=== PATIENT | male | born 1975 | race Caucasian/White ===

== ENCOUNTER 2017-07-05 14:09 | Observation (INO) | payer OTHER ==
[2017-07-05] VITALS (14 sets, daily range): BP systolic 146–177; BP diastolic 93–106; PULSE 73–106; RESP 11–20; O2SAT 92–100
[~2017-07-05] VITALS: Ht 188 cm; Wt 107.0 kg
[2017-07-05] MEDS ORDERED: HYDROmorphone 1 mg/mL Inj ONE (14:53)
--- NOTE | 2017-07-05 15:08 | ED.REPORT ---
HPI-Extremity Problem Upper Date of Service Jul 05, 2017 ED Provider: Cristi Brown MD Pt is a 41 year old male who presents to the ED from [facility] with a left arm fracture s/p falling on his arm onset earlier this afternoon. He received a splint from , but came to the ED with the need for a reduction. He states that his pain radiates up his left arm, but didn't break through his skin. Pt denies loss of consciousness during the fall or numbness/ tingling. Nursing Notes Stated Complaint: LEFT ARM INJURY Chief Complaint: Extremity Trauma Nursing Notes Reviewed: Yes Allergies: Coded Allergies: No Known Allergies (Unverified , 07/05/17) Scheduled PRN oxyCODONE-Acetaminophen 5-325 mg (oxyCODONE-Acetaminophen 5-325 mg) 1 Each Tablet 1-2 TAB PO Q6H PRN PRN For Pain General Time Seen by MD: 15:07 Chief Complaint Arm injury left Hx Obtained From: Patient Arrived By: Walk-in Onset Occurred: 1 - 4 hours ago Symptom Duration: Constant Caused by: Fall on ground Location: : Arm left Quality: Painful Severity: Current: Moderate Severity: Maximum: Moderate Recent Healthcare: Recent doctor visit Similar Sx Previous: No Past Medical History Past Medical History Denies Past Surgical History knee hands face Family History Reports: Diabetes mellitus Smoking History Former Smoker Social History drinks coffee regularly, no other forms of caffeine Alcohol Use: "Social" Drug Use: Denies drug use Other Social History: Good social support Ambulatory Status Independent Review of Systems Musculoskeletal: Reports: Extremity pain (Left arm fracture) Neurologic: Denies: Change LOC, Numbness Complete sys rev & neg: except as marked. Physical Exam Initial Vital Signs Vital Signs (First) Date Time Temp Pulse Resp B/P Pulse Ox O2 Delivery O2 Flow Rate FiO2 07/05/17 14:11 37.1 80 16 147/102 100 Initial VS: Reviewed Head / Eyes: Atraumatic, Normocephalic Neck: Supple, Full range of motion Respiratory: No respiratory distress Skin: Warm, Dry, No cyanosis Neurologic: Alert, Oriented, Nonfocal Psychiatric: Mood/affect normal, Behavior normal, Normal thought content General/Constitutional: Awake, Alert Upper Extremity / MS: Neurologic intact, Vascular intact Wrist / Hand: Neurologic intact, Vascular intact Posterior deformity of left distal wrist Pinpoint puncture wound over volar aspect of radial head, presumptive of open fracture ENT: Atraumatic, Airway patent, Mucous membranes moist Interpretation & Diagnostics X-Ray Interpretation Xray Interpretation: IMPRESSION: Comminuted, mildly impacted distal radial fracture. Mildly displaced ulna styloid fracture is present. Dictated by: Arline Capellan M.D. on 07/05/2017 at 16:59 Approved by: Arline Capellan M.D. on 07/05/2017 at 17:00 X-Ray Ordered: Wrist left Interpretation / Wet Read by: Interpret - Radiologist Procedures Reduction of Left Distal Wrist Open Fracture: Pre-Procedure: Time - 1632 Performed by ED Physician Informed consent provided. Consent from patient. Time-out performed, hand hygiene observed, oxygen administered, pulse oximeter applied, property assessment monitor applied. Sedation: Propofol Procedure: Neurovascular: Intact pre-procedure, intact post-procedure. Post Procedure: Adequately reduced per examination. Procedure successful. Condition improved, tolerated procedure, well, and patient stable. Proced Mod Sedation/Analgesia ED Physician left room at 1637. Respiratory therapy still in room with patient. Time: 16:31 Procedure Performed by: ED physician Sedation Time: Enter # minutes (6 minutes) Consent / Setup: Informed consent provided, Consent from patient, Time-out performed, Hand hygiene observed Indication: Fracture reduction Preparation: radiation monitor applied, Pulse oximeter applied, Constant attendance, IV access established, Eval last meal time, Supplemental oxygen, Procedure explained, Suction available, End tidal CO2 mon applied VS Prior to Procedure: All vital signs normal Mallampati: Class & Anatomy: 1 tonsils/uvula/s palate Airway Exam: Normal facial anatomy CVS/Resp Exam: Normal breath sounds Neuro Exam: Alert, Responsive Sedation: Sedation: Propofol ASA Classification: 1 normal healthy patient Response During Procedure: Handled secretions adeq, Maintained airway well, Oxygenation stable, Sedation appropriate, Vital signs stable Complications During/After: None Reversal: None required Mental Status After Procedure: Alert, Oriented X3 Post-Procedure: Alert prior to discharge, Ambulatory with assist, Pt rtn pre- proc baseline, Vital signs normal Attestation: I performed procedure, I performed sedation Re-Eval/Medical Decision Source of Hx: Old records Re-Evaluation/Progress : Time of Eval: 16:20 Re-Evaluation/Progress Note: Pt rechecked. Performed reduction and sedation procedures. Discussed plan for admission. Pt understands and agrees with plan. All questions addressed. Consultation #1: Referral / Consult Name: Ayush Pabon Consulted With: Orthopedic Call Returned at: 16:54 Director Market Intelligence: Agrees with eval, Agrees with plan Note: Discussed pt's case with orthopedic surgeon, Dr. Pabon. He will look at the pt's x-ray. Consultation #2: Referral / Consult Name: PepperAyush Metcalf DO Consulted With: Orthopedic Call Returned at: 17:05 Director Market Intelligence: Will see patient, Agrees with plan, Accepts admit Note: Discussed pt's case with orthopedic surgeon, Dr. Pabon. He states that pt will go to surgery today, and accepts admission. Consultation #3: Referral / Consult Name: AlondraAyush salgado DO Consulted With: Orthopedic Call Returned at: 18:12 Note: [facility] 60 percocet for patient to be filled for after procedure. Counseled Regarding: Diagnosis, Lab results, Need for admission Discharge & Departure Impression: Primary Impression: Open fracture of left wrist Encounter type: initial encounter Qualified Code: S62.102B - Fracture of unspecified carpal bone, left wrist, initial encounter for open fracture Disposition: ADMITTED TO HOSPITAL Discharge Condition All VS Reviewed: Yes Condition: Stable Referrals: Jaime Steinberg DO (PCP) Scribe Attestation Portions of this note were transcribed by Janie Austin. I, Dr. Brown, personally performed the history, physical exam and medical decision-making; I reviewed and confirmed the accuracy of the information in the transcribed note. copies to: Jaime Steinberg Kirk H MD Jul 05, 2017 15:08 Janie Austin Jul 05, 2017 15:14
[2017-07-05] MEDS ORDERED: Propofol 10 mg/mL 20 mL Inj ONE (15:29)
[2017-07-05] MEDS ORDERED: Ondansetron 2 mg/mL 2 mL Inj IVPUSH PRN ×2 (15:50→17:35)
[2017-07-05] MEDS: HYDROmorphone 1 mg/mL Inj IVPUSH PRN ×2 (16:05→17:09)
[2017-07-05] MEDS ORDERED: TdaP Vaccine 0.5 mL Inj IM ONE (16:40)
[2017-07-05] MEDS ORDERED: CeFAZolin Inj 1 GM in IV Premix 1 EACH IV ONE (16:40)
[2017-07-05] MEDS ORDERED: Propofol 10,000 mCg/mL 20 mL Inj IV ONE (16:45)
--- NOTE | 2017-07-05 17:02 | DRSVH ---
PROCEDURE: X-RAY LEFT WRIST, TWO VIEWS ([id number]) INDICATIONS: C-ARM ASSISTED CLOSED REDUCTION TECHNIQUE:2 views of the wrist were acquired. COMPARISON: None. FINDINGS: Bones: There is a comminuted, mildly impacted distal radial fracture without definitive intra-articul ar extension. A mildly displaced ulna styloid fracture is present. Scaphoid view: Not obtained. Soft tissues: No suspicious soft tissue calcifications. IMPRESSION: Comminuted, mildly impacted distal radial fracture. Mildly displaced ulna styloid fractur e is present. Dictated by: Arline Capellan M.D. on 07/05/2017 at 16:59 Approved by: Arline Capellan M.D. on 07/05/2017 at 17:00
[2017-07-05] MEDS ORDERED: Labetalol 5 mg/mL 20 mL Inj IV PRN (17:35)
[2017-07-05] MEDS ORDERED: hydrALAZINE 20 mg/mL Inj IVPUSH PRN (17:35)
[2017-07-05] MEDS ORDERED: Phenylephrine 10,000 mCg/mL Inj IVPUSH PRN (17:35)
[2017-07-05] MEDS ORDERED: HYDROmorphone 1 mg/mL Inj IVPUSH PRN (17:35)
[2017-07-05] MEDS ORDERED: Lactated Ringer's 500 ML IV PRN (17:35)
[2017-07-05] MEDS ORDERED: Dexamethasone 4 mg/mL Inj IVPUSH PRN (17:35)
[2017-07-05] MEDS ORDERED: MetoCLOpramide 5 mg/mL 2 mL Inj IVPUSH PRN (17:35)
[2017-07-05] MEDS ORDERED: EPHEDrine Sulfate 50 mg/mL Inj IVPUSH PRN (17:35)
[2017-07-05] MEDS ORDERED: Lactated Ringer's 1,000 ML IV SCH (17:35)
[2017-07-05] MEDS ORDERED: Atropine 0.4 mg/mL Inj IVPUSH PRN (17:35)
[2017-07-05] MEDS ORDERED: fentaNYL-PF 50 mCg/mL 2 mL Inj IVPUSH PRN (17:35)
--- NOTE | 2017-07-05 17:35 | PCM.HPANE ---
Patient Data Date of Service: Jul 05, 2017 Surgeon Admitting Provider: Attending Provider: Primary Care Physician:Idris De La Torre MD Other Provider: Reason for Visit Left Arm Injury Ht/WT & BMI Height (Feet): 6 Height (Inches): 2 Weight (Kilograms): 106.82 Body Mass Index Allergies Coded Allergies: No Known Allergies (Unverified , 07/05/17) Past Anesthesia History Anesthesia History: Denies:: Abnormal Airway, Anesthesia Reactions Diabetes History Hx Diabetes?: No MRSA MRSA: No Medications Hypertension Medication: No Home Meds Incl Beta Lisbet: No History History of ENT Problems?: No HEENT History: Denies:: Abnormal Airway Difficult Intubation Denture Type: None Teeth Condition: Within Normal Limits Hx of Heart Problems?: Yes (Hx SVT) Cardiovascular History: Denies:: Congestive Heart Failure Hypertension Hx of Respiratory Problem?: No Respiratory History: Denies:: Asthma COPD Tuberculosis Hx Neurologic Problems?: No Neurological History: Denies:: CVA Dizziness Headaches Hx of GI Problems?: No Hx of Problems?: No HX of Peritoneal Dialysis: No Hx Musculoskeletal Problems?: Yes (Left wrist fracture) Hx of Psycho/Social Problems?: No Hx Surgeries?: Yes (knee, hands, face) Hx Any Other Health Problems?: No Hx Diabetes: No Hx Alcohol Use: YesHx Substance Use: No Smoking Status: Former Smoker (currently vapes) Have You Smoked inLast 12 mo: No Stop/Bang Treated for Sleep Apnea?: No Do You Have a CPAP Machine?: No DOT Risk Assessment: Low Risk, <3 Yes Risk Assessment Category Category 1A: Patient has history of documented sleep apnea, and HAS NOT received any narcotic, sedative or anesthesia administration during this stay. Category 1B: Patient has history of documented sleep apnea, and HAS received any narcotic , sedative or anesthesia administration during this stay Category 2: Patient has SUSPECTED Obstructive Sleep Apnea, and HAS received any narcotic , sedative or anesthesia administration during this stay. Category 3: Patient has SUSPECTED Obstructive Sleep Apnea and HAS NOT received narcotic, sedative or anesthesia administration during this stay. Category 4: Outpatient in Procedural Areas with known sleep apnea or who screen positive for High Risk via the STOP/BANG questionnaire. Exam Exam Vital Signs Vital Signs Date Time Temp Pulse Resp B/P Pulse Ox O2 Delivery O2 Flow Rate FiO2 07/05/17 14:11 37.1 80 16 147/102 100 General Appearance: Alert, Oriented X3, Cooperative HEENT/AIRWAY: MP 2, Neck Movement (Full, haney), Mouth Opening Lungs: Clear to Auscultation, Normal Air Movement Heart: Regular Rate/Rhythm, Normal S1, Normal S2 Meds/Labs/Diagnostics Admission Meds Current Medications Hydromorphone HCl (Dilaudid Inj) 1 mg STK-MED ONCE .ROUTE Last administered on 07/05/17 14:59; Start 07/05/17 at 14:53; Stop 07/05/17 at 14:55; Status DC Propofol 200 mg 200 mg STK-MED ONCE .ROUTE Last administered on 07/05/17 16:25 ; Start 07/05/17 at 15:29; Stop 07/05/17 at 15:30; Status DC Cefazolin Sodium/ Dextrose/Premix (Ancef Inj/IV Premix) 50 ml @ 100 mls/hr ONCE ONCE IV Last administered on 07/05/17 17:09; Start 07/05/17 at 16:40; Stop 07/05/17 at 17:09; Status DC Plan Impression Patient chart reviewed, patient interviewed and anesthestic plan with risks, benefits, and alternatives discussed, and informed consent obtained. NPO per Anesth. Guidelines: Yes ASA Physical Status: ASA2 Plus Emergency Anesthetic Plan: GA Bene/Risks/Altern/Consents: Yes HP Complete Prior to Induction: Yes Justice Painter MD Jul 05, 2017 17:35
[2017-07-05] MEDS ORDERED: OXYC1TAB24 PO (18:12)
--- NOTE | 2017-07-05 18:37 | HP ---
[address] [address] HISTORY AND PHYSICAL PATIENT: NOÉ BONDS : 1975 MR#: [id number] ADMIT: 07/05/2017 JOB ID: [id number] DATE: 07/05/2017 CHIEF COMPLAINT: Left wrist injury. HISTORY OF PRESENT ILLNESS: The patient is a 41-year-old male who was in a shooting competition and slipped and fell. His gun was in the right hand and therefore he fell onto his left outstretched hand and sustained a displaced fracture of the left distal radius and ulna. He was brought to the emergency department. He is left-hand dominant. He had onset of severe acute pain in the left wrist. PAST MEDICAL HISTORY: Significant for SVT which is treated with bearing down and does not require any medications. PAST SURGICAL HISTORY: Includes ACL reconstruction on the right knee, facial surgeries after dog bite, and a left wrist cyst removal. ALLERGIES: No known drug allergies. PHYSICAL EXAMINATION: Blood pressure 145/109, pulse rate 98, respirations 18, O2 sat 98%. He is alert and oriented x3. No acute distress. Left wrist is splinted. He is able to move his fingers. He has some slightly diminished sensation in the thumb, index and middle finger. His capillary refill is less than 3 seconds. Per the emergency physician and patient report, there is a small wound over the radial volar wrist with bleeding coming from it adjacent his previous surgical scar from cyst removal. He denies any other injuries. No pain with range of motion of the shoulder or right upper extremity. No pain with range of motion of bilateral lower extremities. X-rays demonstrate left comminuted distal radius and ulnar fractures. ASSESSMENT: Left comminuted grade 1 open distal radius fracture. PLAN: We discussed treatment options, and the patient would like to proceed with operative treatment now and we discussed the risks, benefits, and possible complications of surgery including, but not limited to, injury to nerves and vessels, infection, bleeding, incomplete relief of symptoms, stiffness, need for additional procedures, hardware irritation. The patient had a good understanding and all questions were answered. He wished to proceed. He would prefer to avoid casting if at all possible. Dr. Brown, emergency physician, prescribed Percocet #60 for postoperative pain as the patient would like to go home this evening if at all possible.
[2017-07-05] MEDS ORDERED: Ropivacaine-PF 0.5% 30 mL Inj INFILTRATE ONE (19:21)
--- NOTE | 2017-07-05 20:57 | PCM.ANEP1 ---
Post Anesthesia PACU Phase 1 Assessment Date of Service: Jul 05, 2017 Vital Signs Vital Signs Date Time Temp Pulse Resp B/P Pulse Ox O2 Delivery O2 Flow Rate FiO2 07/05/17 20:50 104 12 177/106 92 Nasal Cannula 2 07/05/17 20:48 37.0 101 11 153/104 100 Simple Mask 9 07/05/17 18:45 37.1 81 17 153/103 95 Room Air 07/05/17 18:08 81 17 153/103 95 Room Air 07/05/17 14:11 37.1 80 16 147/102 100 Anesthetic Administered: GA Level of Alertness: Sleepy, easy to arouse ALEXANDRA's with Equal Strength: Yes Pain: No Nausea or Vomiting: No CV Function & Hydration Stable: Yes Airway Device: Oxygen Delivery: Nasal Cannula Lungs: Normal Air Movement PACU Phase 2 Assessment Complications: No Follow up Care: N/A Patient Instructions Provided: N/A Comments Concern intraop for brief SVT episodes for which patient was stable throughout. Upon closer monitoring it appeared the EKG changes were associated with surgical field movement, and although the EKG rate raji to approximately 150, the pulse oximetry rate persisted in the 60s. After surgical completion patient showed no signs of arrhythmia. Will continue to monitor in PACU and place on telemetry when transferred to floor prior to discharge to ensure no arrhythmias. Patient does have a known diagnosis of SVT. Justice Painter MD Jul 05, 2017 20:57
[2017-07-05] MEDS ORDERED: hydrOXYzine Pamoate 25 mg Capsule PO PRN (21:00)
--- NOTE | 2017-07-05 21:12 | OP ---
[address] [address] OPERATIVE REPORT PATIENT: NOÉ BONDS : 1975 MR#: [id number] ADMIT: 07/05/2017 JOB ID: [id number] DATE OF SURGERY: 07/05/2017 PREOPERATIVE DIAGNOSIS(ES): Left grade 1 open distal radius fracture. POSTOPERATIVE DIAGNOSIS(ES): Left grade 1 open distal radius fracture. PROCEDURE: Left wrist open reduction and internal fixation. SURGEON: Ayush Pabon DO. ANESTHESIA: General. INDICATIONS: The patient is a 41-year-old male who fell on his outstretched hand sustaining a left comminuted displaced distal radius fracture with a small grade 1 open puncture wound on the volar aspect of the wrist. We discussed treatment options for this, and he wished to proceed with open reduction and internal fixation. We discussed the risks, benefits, and possible complications of surgery. All questions were answered and he wished to proceed. PROCEDURE IN DETAIL: The patient was brought to the operating room. He was given a preoperative antibiotic and general anesthetic. The left upper extremity was sterilely prepped and draped. A tourniquet was used for hemostasis. An incision was made over the FCR tendon incorporating his previous volar scar. Dissection was carefully carried through the subcutaneous tissue and the fascia overlying the FCR tendon was incised. The interval between the FCR and the radial artery was identified, and dissection was carefully carried down onto the pronator into Parona's space. The pronator was released off of the radial aspect of the radius and the fracture was then identified. The pronator was released off of the volar radius. The fracture was irrigated and then reduced by direct visualization and held with a 0.062 K-wire. Next, a Synthes volar distal radius plate was applied to the volar radius, secured initially with K-wires to confirm plate placement and then secured with 2.7 cortex screw in the oblong hole. This was adjusted to reach the appropriate level distally and then a 2.4 nonlocking screw was placed distally in order to suck the plate down to the bone. Additional locking screws were placed distally and fluoroscopy was used to confirm placement. Using the variable angle locking screws care was taken to ensure that the screws were not prominent on the dorsal aspect of the wrist and two additional 2.7 proximal shaft screws were added and tightened down yielding excellent fixation of the fracture with anatomic reduction. The wound was further irrigated and the pronator was repaired. The tourniquet was then let down. Electrocautery was used for hemostasis. The subcu was closed with 3-0 Vicryl and the skin was closed with running subcuticular 4-0 Monocryl with Steri-Strips. Naropin was added as an adjunct local anesthetic. Sterile dressings and a volar splint were applied. The patient tolerated the procedure well. Blood loss was minimal. POSTOPERATIVE PROTOCOL: Have the patient maintain his splint for two weeks and then follow up in the clinic for recheck with transition over to an Exos cast as the patient cannot tolerate cast. Continue the Exos cast for likely period of 3-4 weeks and then follow up with myself with x-rays. The emergency department physician prescribed 60 Percocet for postop pain.
[2017-07-05] MEDS: oxyCODONE-Acetamin 5-325 mg Tablet PO PRN (22:11)
[2017-07-06 00:45] VITALS: BP 145/92; PULSE 85; RESP 18; O2SAT 97
[2017-07-06] MEDS: CeFAZolin Inj 2 GM in IV Premix 1 EACH IV SCH ×2 (00:58→09:29)
[2017-07-06] MEDS: oxyCODONE-Acetamin 5-325 mg Tablet PO PRN ×3 (02:08→10:28)
[2017-07-06 05:11] VITALS: BP 143/91; PULSE 101; RESP 20; O2SAT 94
--- NOTE | 2017-07-06 09:17 | PCM.PNORTH ---
Subjective Date of Service: Jul 06, 2017 Visit Information: Reason for Visit Left Luca Open Fracture Surgery/Surgery Date Post-Op Day # 1 Date of Admission: Jul 05, 2017 at 17:45 Hospital Day # Subjective Patient states his pain is well controlled with his Percocet. He states he has been icing and elevating with a pillow under his arm. He states he had transient numbness in his thumb but it has resolved now. He complains of tightness in his forearm from time to time but states it resolves when he elevates his arm. Postop General: No Complaints, No Shortness of Breath, No Chest Pain Pain Management: PO Objective Exam Objective Patient laying in bed Vital Signs and I/O Vital Sign - Last Date Time Temp Pulse Resp B/P Pulse Ox O2 Delivery O2 Flow Rate FiO2 07/06/17 05:11 36.9 101 20 143/91 94 Room Air 07/06/17 00:45 2.50 Intake and Output 07/05/17 07/05/17 07/06/17 Cumulative From/Thru 15:00 23:00 07:00 07/05/17 14:11 - 07/06/17 05:13 Intake Total 1900 ml 476 ml 2376 ml Output Total 550 ml 550 ml Balance 1900 ml -74 ml 1826 ml Intake Oral 400 ml 400 ml IV Total 1900 ml 76 ml 1976 ml Output Urine Total 550 ml 550 ml # Bowel Movements 0 0 General Appearance: Alert, Oriented X3, Cooperative, No Acute Distress Extremities: Warm Postop Sensory Motor: Distal Motor Intact, Movement in Fingers SURGICAL WOUND : Wound Location/Description Splint c/d/i. Able to extend and abd/adduct fingers. Able to make a fist. Capillary refill is brisk. Assessment & Plan Impression Postoperative day #1 left open distal radius ORIF Problems: Plan Weightbearing: Nonweightbearing with the left upper extremity. Dressings/Immobilization: Keep splint clean dry and intact. Do not remove. Do not get wet. Ice and elevate frequently to reduce swelling. Place ice at the crook of the elbow. Showering: Keep splint dry. Cover with bag and/or plastic wrap. Do not get it wet. Analgesia: Patient given #60 Percocet in the ED. Please take these as directed. May supplement with ibuprofen or another NSAID. Discharge plan: Discharge home today. Follow-up plan: In 2 weeks at [facility] with a PA for wound check, xrays and transition to an Exos or cast. Follow up at 6 weeks post-op with Dr. Pabon with xrays. Tori Boyce PA-C Jul 06, 2017 09:17
--- NOTE | 2017-07-06 09:20 | PCM.DIOPOR ---
OP Ortho Discharge Instruction Dates of Hospitalization Date of Discharge: Jul 06, 2017 Providers Admitting Physician: Ayush Pabon DO Primary Care Physician: Idris De La Torre MD Attending Physician: Aysuh Pabon DO Diagnosis at Time of Discharge Post operative diagnosis Status post left open distal radius ORIF Activity Activity-General: Elevate & ice extremity Left Upper Extremity: Non-weight bearing Dressing and Incisional Care Dressing Care: Keep dressing clean, dry & intact Additional Instructions Discharge Instructions Weightbearing: Nonweightbearing with the left upper extremity. Dressings/Immobilization: Keep splint clean dry and intact. Do not remove. Do not get wet. Ice and elevate frequently to reduce swelling. Place ice at the crook of the elbow. Showering: Keep splint dry. Cover with bag and/or plastic wrap. Do not get it wet. Analgesia: Patient given #60 Percocet in the ED. Please take these as directed. May supplement with ibuprofen or another NSAID. Discharge plan: Discharge home today. Follow-up plan: In [address] [facility] with a PA for wound check, xrays and transition to an Exos or cast. Follow up at 6 weeks post-op with Dr. Pabon with xrays. Tori Boyce PA-C Jul 06, 2017 09:19
[2017-07-06 09:25] VITALS: BP 154/106; PULSE 84; RESP 18; O2SAT 95
[2017-07-06 10:02] VITALS: PULSE 96
[2017-07-06] MEDS ORDERED: Succinylcholine Chloride 20 mg/mL 5 mL Inj ONE (12:07)
[2017-07-06] MEDS ORDERED: Phenylephrine/NS 100 mCg/mL 10 mL Syringe IVPUSH ONE (12:07)
[2017-07-06] MEDS ORDERED: Ondansetron 2 mg/mL 2 mL Inj ONE (12:07)
[2017-07-06] MEDS ORDERED: Propofol 10,000 mCg/mL 20 mL Inj ONE (12:07)
[2017-07-06] MEDS ORDERED: fentaNYL-PF 50 mCg/mL 2 mL Inj ONE (12:07)
--- NOTE | 2017-07-07 10:39 | PCM.DC.ORT ---
Discharge Summary Date of Service: Jul 07, 2017 Date of Hospital Admission: Jul 05, 2017 at 17:45 Date of Discharge: Jul 07, 2017 Reason for Hospitalization: Left open distal radius fracture Procedures Performed: Left distal radius fracture ORIF Hospital Course: The patient was admitted to the hospital on 07/05/2017 and underwent the above procedure. Antibiotic prophylaxis consisting of Ancef and vancomycin. The surgeon was Dr. Pabon. Patient tolerated the procedure well and was transferred to recovery room in stable condition. Patient had physical therapy to work on ambulation and transfers. Weightbearing as tolerated with walker. Pain was managed with Dilaudid, Percocet, Vistaril, Toradol. DVT prophylaxis: SCDs. Hospital course was uncomplicated. Patient was able to perform adequately enough to be discharged home on postop day 1. Follow-up: at [facility] 2 weeks postop for wound check and at [address] Pabon with x-ray. Discharge Instructions: Weightbearing: Nonweightbearing with the left upper extremity. Dressings/Immobilization: Keep splint clean dry and intact. Do not remove. Do not get wet. Ice and elevate frequently to reduce swelling. Place ice at the crook of the elbow. Showering: Keep splint dry. Cover with bag and/or plastic wrap. Do not get it wet. Analgesia: Patient given #60 Percocet in the ED. Please take these as directed. May supplement with ibuprofen or another NSAID. Discharge plan: Discharge home today. Follow-up plan: In 2 weeks at [facility] with a PA for wound check, xrays and transition to an Exos or cast. Follow up at 6 weeks post-op with Dr. Pabon with xrays. oxyCODONE-Acetaminophen 5-325 mg (oxyCODONE-Acetaminophen 5-325 mg) 1 Each Tablet 1-2 TAB PO Q6H PRN PRN For Pain Tori Boyce PA-C Jul 07, 2017 10:39
== END 2017-07-06 12:08 | disposition home or self-care (01) ==
LOC: SED 14:09 → OSC 17:45
PROVIDERS: ADMIT Orthopaedic Surgery; ATTEND Orthopaedic Surgery
DX: S52.502A Unspecified fracture of the lower end of left radius, initial encounter for closed fracture (principal); I47.1 Supraventricular tachycardia; W18.30XA Fall on same level, unspecified, initial encounter; Y93.9 Activity, unspecified; Y92.9 Unspecified place or not applicable; Y99.9 Unspecified external cause status; Z23 Encounter for immunization; Z87.891 Personal history of nicotine dependence
CPT/HCPCS: 25605; 25608; 73100; 76000; 90471; 90715; 94799; 96361; 96365; 96375; 96376; 99285; C1713; G0378; J0330; J0690; J1170; J1885; J2250; J2370; J2405; J2704; J2795; J3010; J7120